=== PATIENT | male | born 1965 | race Caucasian/White ===

== ENCOUNTER 2016-02-28 16:01 | Emergency (ER) | payer MEDICARE ==
[~2016-02-28] VITALS: Ht 180.3 cm; Wt 113.6 kg
[~2016-02-28 16:01] MED LIST: CYCL-36 PO; OXYC5 PO; ZOFR4TAB3 SL
[2016-02-28 16:02] VITALS: BP 141/81; PULSE 97; RESP 17; TEMP 98.6; O2SAT 96
[2016-02-28] MEDS ORDERED: CYCL1TAB29 PO (17:19)
[2016-02-28] MEDS ORDERED: HYDR-3535 PO (17:19)
--- NOTE | 2016-02-28 17:24 | PD ---
HPI Chief Complaint: Abdominal Pain Time Seen by Provider: 17:20 Travel History International Travel<30 days: No Contact w/Intl Traveler<30days: No Traveled to known affect area: No History of Present Illness HPI 50-year-old male with history of chronic abdominal pain, gastritis, small bowel obstruction, PUD presents to the ED for evaluation of "months long" history of generalized abdominal pain, worsened over the last 3 or 4 days. No alleviating or exacerbating factors reported. Patient also endorses several episodes of nonbloody, non-plus vomiting and loose stools. States that last episode of vomiting was approximately 36 hours ago. He endorses 4 episodes of loose stool today. He denies fevers, chills, anorexia, BRBPR, melena, hematochezia. Endorses passing gas. Patient states that he was ordered to undergo gastroscopy and colonoscopy ~6 months ago but has not followed up. PFSH Past Medical History Anxiety: Yes Depression: Yes Cancer: No Cardiovascular Problems: No Diabetes: No Diminished Hearing: No Endocrine: No Gastrointestinal Disorders: Yes (ACID REFLUX, HX BLEEDING ULCERS) Hepatitis: No Hiatal Hernia: Yes Hypertension: No Immune Disorder: No Medical other: No Musculoskeletal: Yes (CHRONIC BACK PAIN; BULGING DISCS LUMBAR SPINE; ARTHRITIS) Neurologic: Yes (1 SEIZURE MANY YRS AGO) Psychiatric: Yes (ANXIETY & DEPRESSION ) Reproductive: No Respiratory: No Pneumonia: Yes Thyroid Disease: No Ulcer: Yes Influenza Vaccination: No Past Surgical History Abdominal Surgery: Yes (open exploratory due to spot on bowel; LAP CHOLECY) AICD: No Body Medical Devices: LUMB SPINE PINS, cage, PINS TO RIGHT HAND, Cardiac Surgery: No Cholecystectomy: Yes Ear Surgery: No Endocrine Surgery: No Eye Surgery: No Genitourinary Surgery: No Joint Replacement: No Neurologic Surgery: Yes (SPINAL fusions, pin, cage discectomy L4-L5) Oral Surgery: No Pacemaker: No Thoracic Surgery: No Other Surgery: Yes (BLEEDING ULCER CAUTERIZATION) Social History Alcohol Use: Yes (RARELY) Tobacco Use: Yes (1-2 PPD) Substance Use: No Allergies-Medications (Allergen,Severity, Reaction): Coded Allergies: Aspirin (Unverified Allergy, Severe, Bleeding, 02/28/16) bleeding ulcers Phenergan (Verified Allergy, Mild, RESTLESS LEGS, 02/28/16) Reported Meds & Prescriptions Reported Meds & Active Scripts Active Bentyl (Dicyclomine HCl) 10 Mg Cap 10 Mg PO QID 7 Days Reported Flexeril (Cyclobenzaprine HCl) 10 Mg Tab 10 Mg PO TID Lortab (Hydrocodone-Acetaminophen) 10-325 Mg Tab 1 Tab PO Q6H PRN Review of Systems Except as stated in HPI: all other systems reviewed are Neg Physical Exam Narrative GENERAL: Well-nourished, well-developed obese white male in no acute distress. SKIN: Warm and dry. Several scars on the abdomen, well-healed without signs of infection. HEAD: Normocephalic. EYES: No scleral icterus. No injection or drainage. NECK: Supple, trachea midline. No JVD or lymphadenopathy. CARDIOVASCULAR: Regular rate and rhythm without murmurs, gallops, or rubs. RESPIRATORY: Breath sounds equal bilaterally. No accessory muscle use. GASTROINTESTINAL: Abdomen protuberant, soft, nondistended. Mild tenderness in the epigastric region, mild tenderness in the suprapubic region. MUSCULOSKELETAL: No cyanosis, or edema. The patient is ambulatory and observed to walk and even gait. BACK: Nontender without obvious deformity. No CVA tenderness. Data Data Last Documented VS Vital Signs Date Time Temp Pulse Resp B/P Pulse Ox O2 Delivery O2 Flow Rate FiO2 02/28/16 17:53 97 Room Air 02/28/16 16:02 98.6 97 17 141/81 Orders Complete Blood Count With Diff (02/28/16 17:32) Comprehensive Metabolic Panel (02/28/16 17:32) Lipase (02/28/16 17:32) Lactic Acid (02/28/16 17:32) Prothrombin Time / Inr (Pt) (02/28/16 17:32) Act Partial Throm Time (Ptt) (02/28/16 17:32) Urinalysis - C+S If Indicated (02/28/16 17:32) Ct Abd/Pel W Iv Contrast(Rout) (02/28/16 17:32) Iv Access Insert/Monitor (02/28/16 17:32) Ecg Monitoring (02/28/16 17:32) Oximetry (02/28/16 17:32) Morphine Inj (Morphine Inj) (02/28/16 17:45) Ondansetron Inj (Zofran Inj) (1/22/17 17:45) Sodium Chlor 0.9% 1000 Ml Inj (Ns 1000 M (02/28/16 17:32) Sodium Chloride 0.9% Flush (Ns Flush) (02/28/16 17:45) Iohexol 350 Inj (Omnipaque 350 Inj) (02/28/16 18:30) Acetamin-Hydrocod 325-5 Mg ([place] 5-325 (02/28/16 20:00) Labs Laboratory Tests Test 02/28/16 02/28/16 17:58 19:02 White Blood Count 11.8 TH/MM3 Red Blood Count 5.56 MIL/MM3 Hemoglobin 15.5 GM/DL Hematocrit 45.4 % Mean Corpuscular Volume 81.7 FL Mean Corpuscular Hemoglobin 27.9 PG Mean Corpuscular Hemoglobin 34.1 % Concent Red Cell Distribution Width 12.9 % Platelet Count 333 TH/MM3 Mean Platelet Volume 8.1 FL Neutrophils (%) (Auto) 76.2 % Lymphocytes (%) (Auto) 16.7 % Monocytes (%) (Auto) 5.7 % Eosinophils (%) (Auto) 0.4 % Basophils (%) (Auto) 1.0 % Neutrophils # (Auto) 9.0 TH/MM3 Lymphocytes # (Auto) 2.0 TH/MM3 Monocytes # (Auto) 0.7 TH/MM3 Eosinophils # (Auto) 0.1 TH/MM3 Basophils # (Auto) 0.1 TH/MM3 CBC Comment DIFF FINAL Differential Comment Prothrombin Time 10.4 SEC Prothromb Time International 0.9 RATIO Ratio Activated Partial 28.7 SEC Thromboplast Time Sodium Level 139 MEQ/L Potassium Level 3.6 MEQ/L Chloride Level 104 MEQ/L Carbon Dioxide Level 28.7 MEQ/L Anion Gap 6 MEQ/L Blood Urea Nitrogen 10 MG/DL Creatinine 0.94 MG/DL Estimat Glomerular Filtration 86 ML/MIN Rate Random Glucose 96 MG/DL Lactic Acid Level 0.9 mmol/L Calcium Level 9.8 MG/DL Total Bilirubin 1.0 MG/DL Aspartate Amino Transf 13 U/L (AST/SGOT) Alanine Aminotransferase 27 U/L (ALT/SGPT) Alkaline Phosphatase 91 U/L Total Protein 7.3 GM/DL Albumin 4.0 GM/DL Lipase 163 U/L Urine Color LIGHT-YELLOW Urine Turbidity CLEAR Urine pH 8.0 Urine Specific [place] 1.010 Urine Protein NEG mg/dL Urine Glucose (UA) NEG mg/dL Urine Ketones NEG mg/dL Urine Occult Blood NEG Urine Nitrite NEG Urine Bilirubin NEG Urine Urobilinogen LESS THAN 2.0 MG/DL Urine Leukocyte Esterase NEG Urine WBC LESS THAN 1 /hpf Urine Squamous Epithelial <1 /hpf Cells Microscopic Urinalysis Comment CULT NOT INDICATED MDM Medical Decision Making Medical Screen Exam Complete: Yes Emergency Medical Condition: Yes Differential Diagnosis Gastroenteritis versus PUD versus small bowel obstruction versus chronic abdominal pain versus other Narrative Course 50-year-old male with history of chronic abdominal pain, gastritis, small bowel obstruction, PUD presents to the ED for evaluation of "months long" history of generalized abdominal pain, worsened over the last 3 or 4 days. No alleviating or exacerbating factors reported. Patient endorses several episodes of vomiting , last episode approximately 36 hours ago. Endorses 4 episodes of loose stool and passing gas today. Denies hematemesis, hematochezia, melena, fevers, chills , anorexia. Vitals reviewed. Physical exam reveals a nontoxic-appearing obese white male in no acute distress. The abdominal exam reveals mild epigastric and suprapubic tenderness but is otherwise unremarkable. No CVA tenderness. IV was established. Patient was administered Zofran, morphine, fluid bolus. CBC: WBC 11.8. Hemoglobin 15.5. INR 0.9. CMP unremarkable. Lactic acid 0.9. Lipase 163. UA: No culture indicated. Abdominal CT: No acute abnormality per radiology read. I discussed the patient, results of the workup and plan of care with Dr. Vilchis. Discussed the results of the workup with the patient, stressed the importance of follow-up with the risk investigator for gastroscopy as previously ordered. He was provided a course of Bentyl. We discussed the Aretha diet and again I stressed the importance of follow-up. He indicated understanding of the discharge instructions, he is amenable with the plan of care. He is stable and discharged home. Diagnosis Primary Impression: Abdominal pain Qualified Code: R10.84 - Generalized abdominal pain Referrals: [employer] Patient Instructions: Diet for Stomach Ulcers and Gastritis (ED), Gastritis (ED ), General Instructions Additional Instructions: Take Bentyl as prescribed. Eat a bland diet for the next 3 days and gradually reintroduce new foods. Follow-up with the risk investigator as previously ordered. Return to the ED for any urgent or emergent medical condition. Med/Other Pt SpecificInfo: Prescription(s) given Scripts Dicyclomine (Bentyl)10 Mg Cap10 Mg PO QID 7 Days Ref 0 Prov:Clement Vilchis MD 02/28/16 Disposition: 01 DISCHARGE HOME Condition: Stable Sepideh Cerna Feb 28, 2016 17:23
[2016-02-28] MEDS ORDERED: SODIUM CHLOR 0.9% 1000 ML INJ 1,000 ML IV SCH (17:32)
[2016-02-28] MEDS ORDERED: ONDANSETRON HCL 4 MG/2 ML VIAL IVP ONE (17:45)
[2016-02-28] MEDS ORDERED: MORPHINE SULFATE 4 MG/ML INJ IV PUSH ONE (17:45)
[2016-02-28] MEDS ORDERED: SODIUM CHLORIDE 0.9% FLUSH 5 ML FLUSH IVF PRN (17:45)
[2016-02-28 17:53] VITALS: O2SAT 97
[2016-02-28 18:08] LABS: BASOPHIL # 0.1 TH/MM3 (0-0.2); EOSINOPHIL # 0.1 TH/MM3 (0-0.4); EOSINOPHIL % 0.4 % (0.0-4.0); HEMATOCRIT 45.4 % (39.0-51.0); HEMO FLAGS DIFF FINAL; LYMPH % 16.7 % (9.0-44.0); MEAN CELL VOLUME 81.7 FL (80.0-100.0); MEAN CORPUSCULAR HEMOGLOBIN 27.9 PG (27.0-34.0); MEAN CORPUSCULAR HGB CONC 34.1 % (32.0-36.0); MONO % 5.7 % (0.0-8.0); NEUT % 76.2 % (16.0-70.0); PLATELET COUNT 333 TH/MM3 (150-450); RED BLOOD COUNT 5.56 MIL/MM3 (4.50-5.90); RED CELL DISTRIBUTION WIDTH 12.9 % (11.6-17.2); WHITE BLOOD COUNT 11.8 TH/MM3 (4.0-11.0)
[2016-02-28 18:22] LABS: ALT (GPT) 27 U/L (12-78); ANION GAP 6 MEQ/L (5-15); APTT (PATIENT) 28.7 SEC (24.3-30.1); AST (GOT) 13 U/L (15-37); BICARBONATE 28.7 MEQ/L (21.0-32.0); BLOOD UREA NITROGEN 10 MG/DL (7-18); CHLORIDE 104 MEQ/L (98-107); GLOMERULAR FILTRATION RATE 86 ML/MIN (>89); INTERNATIONAL NORMALIZED RATIO 0.9 RATIO; POTASSIUM 3.6 MEQ/L (3.5-5.1); PROTHROMBIN TIME - PATIENT 10.4 SEC (9.8-11.6); SODIUM (NA) 139 MEQ/L (136-145)
[2016-02-28 18:24] LABS: ALKALINE PHOSPHATASE 91 U/L (45-117)
[2016-02-28] MEDS ORDERED: IOHEXOL 350 MG/ML 10 ML VIAL (for RAD DIAG) IV ONE (18:30)
[2016-02-28 19:14] LABS: BLOOD, URINE NEG (NEG); GLUCOSE,URINE NEG (NEG); KETONE, URINE NEG (NEG); NITRITE,URINE NEG (NEG); SQUAMOUS EPITHELIAL CELL URINE <1 /hpf (0-5); URINE COLOR LIGHT-YELLOW (YELLW/STRAW)
--- NOTE | 2016-02-28 19:16 | RADRPT ---
EXAM DATE/TIME: 02/28/2016 18:25 [facility] COMPARISON: CT ABDOMEN & PELVIS W CONTRAST, May 21, 2015, 2:11. INDICATIONS : Middle lower abdominal pain X one week. IV CONTRAST: 71 cc Omnipaque 350 (iohexol) IV ORAL CONTRAST: No oral contrast ingested. RADIATION DOSE: 17.72 CTDIvol (mGy) MEDICAL HISTORY : Hernia, hiatal. SURGICAL HISTORY : Cholecystectomy. Colon resection. ENCOUNTER: Initial ACUITY: 1 week PAIN SCALE: 6/10 LOCATION: Abdomen TECHNIQUE: Volumetric scanning of the abdomen and pelvis was performed. Using automated exposure control and adjustment of the mA and/or kV according to patient size, radiation dose was kept as low as reasonably achievable to obtain optimal diagnostic quality images. FINDINGS: There are large calcified granulomas seen at the lung bases. There are calcified granulomas seen in the liver and spleen. The liver and spleen are otherwise unremarkable. The pancreas, adrenal glands and kidneys appear normal. The bowel appears normal. Significant diverticula are not seen. The ap pendix is normal. Normal sized lymph nodes are seen in the retroperitoneum. Scattered atherosclerot ic calcifications are seen throughout the arterial system. No aneurysm is present. The pelvic struc tures appear grossly intact. There is a calcification seen at the prostate. There is surgical hardw are seen at the lower lumbar spine. No focal bone lesions are seen. CONCLUSION: 1. No acute abnormality is seen. 2. Evidence of granulomatous disease. 3. Postsurgical change with hardware at the lumbar spine. Luca Archibald MD on February 28, 2016 at 19:00 Board Certified Radiologist. This report was verified electronically.
[2016-02-28 19:21] LABS: COMMENT (UR) CULT NOT INDICATED; CULTURE IF INDICATED CULT NOT INDICATED
[2016-02-28] MEDS ORDERED: DICY10 PO (19:53)
[2016-02-28] MEDS ORDERED: ACETAMINOPHEN/HYDROcodone 325 MG/5 MG TAB PO ONE (20:00)
== END 2016-02-28 20:19 | disposition home or self-care (01) ==
LOC: NEPA 16:01
DX: R10.84 Generalized abdominal pain (principal); G89.29 Other chronic pain
CPT/HCPCS: 74177; 80053; 81001; 83605; 83690; 85025; 85610; 85730; 96361; 96374; 96375; 99284; J2270; J2405; J7030; Q9967

== ENCOUNTER 2016-06-07 07:02 | Emergency (ER) | payer SELFPAY ==
[~2016-06-07] VITALS: Ht 180.3 cm; Wt 110.0 kg
[~2016-06-07 07:02] MED LIST changes: -CYCL-36 PO; +CYCL1TAB29 PO; +DICY10 PO; +HYDR-3535 PO; -OXYC5 PO; -ZOFR4TAB3 SL
[2016-06-07 07:08] VITALS: BP 132/67; PULSE 90; RESP 19; TEMP 98.9; O2SAT 100
[2016-06-07] MEDS ORDERED: SODIUM CHLOR 0.9% 1000 ML INJ 1,000 ML IV ONE (07:15)
[2016-06-07] MEDS ORDERED: PROCHLORPERAZINE INJ 10 MG/2 ML VIAL IV PUSH ONE (07:15)
[2016-06-07] MEDS ORDERED: diphenhydrAMINE HCL 50 MG/ML VIAL IV PUSH ONE (07:15)
[2016-06-07] MEDS ORDERED: OMEP20TA PO (07:36)
[2016-06-07 07:45] LABS: AUTOMATED NEUTROPHIL # 10.3 TH/MM3 (1.8-7.7); BASOPHIL # 0.1 TH/MM3 (0-0.2); BASOPHIL % 0.5 % (0.0-2.0); EOSINOPHIL % 0.4 % (0.0-4.0); HEMATOCRIT 38.1 % (39.0-51.0); HEMO FLAGS DIFF FINAL; LYMPH % 8.6 % (9.0-44.0); MEAN CORPUSCULAR HEMOGLOBIN 29.1 PG (27.0-34.0); MEAN CORPUSCULAR HGB CONC 35.5 % (32.0-36.0); MONO % 6.2 % (0.0-8.0); NEUT % 84.3 % (16.0-70.0); PLATELET COUNT 185 TH/MM3 (150-450); RED BLOOD COUNT 4.65 MIL/MM3 (4.50-5.90); RED CELL DISTRIBUTION WIDTH 13.3 % (11.6-17.2); WHITE BLOOD COUNT 12.2 TH/MM3 (4.0-11.0)
[2016-06-07 08:29] LABS: ALT (GPT) 21 U/L (12-78); ANION GAP 8 MEQ/L (5-15); AST (GOT) 21 U/L (15-37); BLOOD UREA NITROGEN 4 MG/DL (7-18); CHLORIDE 100 MEQ/L (98-107); GLOMERULAR FILTRATION RATE 94 ML/MIN (>89); POTASSIUM 3.8 MEQ/L (3.5-5.1); SODIUM (NA) 135 MEQ/L (136-145)
[2016-06-07 08:31] LABS: ALKALINE PHOSPHATASE 114 U/L (45-117); TOTAL BILIRUBIN ADULT 1.1 MG/DL (0.2-1.0)
[2016-06-07] MEDS ORDERED: ZOFR4TAB3 SL (08:34)
--- NOTE | 2016-06-07 08:34 | PD ---
HPI Chief Complaint: GI Complaint Time Seen by Provider: 07:07 Travel History International Travel<30 days: No Contact w/Intl Traveler<30days: No Traveled to known affect area: No History of Present Illness HPI So 50-year-old man who presents to the emergency department complaint of nausea vomiting started about 10:50 PM last night. States he's vomited 32 times throughout the night. He's vomiting dark yellow fluid. He states over the past week or so he's had a lot of diarrhea, 2 times in the past day, described as black watery diarrhea. He also noticed a rash to both his forearms. Since she's had the vomiting said trouble of migraine headaches as well. Patient had hernia repair, cholecystectomy, as well as in a exploratory surgery for some sort of "spot on [his] bowels". Patient denies any sick contacts. No recent travel. No unusual foods. She's been seen emergency prior for abdominal pain and vomiting multiple times in the past. He states he gets trouble with vomiting when he gets sick. His a history of GERD and reflux as well as back problems, he takes hydrocodone regularly. History Past Medical History Narrative Medical GERD, reflux, recurrent abdominal pain Back problems Social History Alcohol Use: Yes (RARELY) Tobacco Use: Yes (1-2 PPD) Allergies-Medications (Allergen,Severity, Reaction): Coded Allergies: Aspirin (Unverified Allergy, Severe, Bleeding, 02/28/16) bleeding ulcers Phenergan (Verified Allergy, Mild, RESTLESS LEGS, 02/28/16) Reported Meds & Prescriptions Reported Meds & Active Scripts Active Bentyl (Dicyclomine HCl) 10 Mg Cap 10 Mg PO QID 7 Days Reported Omeprazole 20 Mg Tab 20 Mg PO DAILY Flexeril (Cyclobenzaprine HCl) 10 Mg Tab 10 Mg PO TID Lortab (Hydrocodone-Acetaminophen) 10-325 Mg Tab 1 Tab PO Q6H PRN Review of Systems Except as stated in HPI: all other systems reviewed are Neg Physical Exam Narrative GENERAL: Well-appearing 50-year-old man, no acute distress. SKIN: Focused skin assessment warm/dry. HEAD: Atraumatic. Normocephalic. EYES: Pupils equal and round. No scleral icterus. No injection or drainage. ENT: No nasal bleeding or discharge. Mucous membranes pink and moist. NECK: Trachea midline. No JVD. CARDIOVASCULAR: Regular rate and rhythm. No murmur appreciated. RESPIRATORY: No accessory muscle use. Clear to auscultation. Breath sounds equal bilaterally. GASTROINTESTINAL: Abdomen is flat and soft. No significant tenderness. MUSCULOSKELETAL: No obvious deformities. No clubbing. No cyanosis. No edema. NEUROLOGICAL: Awake and alert. No obvious cranial nerve deficits. Motor grossly within normal limits. Normal speech. PSYCHIATRIC: Appropriate mood and affect; insight and judgment normal. Data Data Last Documented VS Vital Signs Date Time Temp Pulse Resp B/P Pulse Ox O2 Delivery O2 Flow Rate FiO2 06/07/16 07:08 98.9 90 19 132/67 100 Orders Complete Blood Count With Diff (06/07/16 07:14) Comprehensive Metabolic Panel (06/07/16 07:14) Lipase (06/07/16 07:14) Iv Access Insert/Monitor (06/07/16 07:14) Prochlorperazine Inj (Compazine Inj) (06/07/16 07:15) Diphenhydramine Inj (Benadryl Inj) (06/07/16 07:15) Sodium Chlor 0.9% 1000 Ml Inj (Ns 1000 M (06/07/16 07:15) Labs Laboratory Tests Test 06/07/16 07:20 White Blood Count 12.2 TH/MM3 Red Blood Count 4.65 MIL/MM3 Hemoglobin 13.5 GM/DL Hematocrit 38.1 % Mean Corpuscular Volume 82.0 FL Mean Corpuscular Hemoglobin 29.1 PG Mean Corpuscular Hemoglobin 35.5 % Concent Red Cell Distribution Width 13.3 % Platelet Count 185 TH/MM3 Mean Platelet Volume 8.7 FL Neutrophils (%) (Auto) 84.3 % Lymphocytes (%) (Auto) 8.6 % Monocytes (%) (Auto) 6.2 % Eosinophils (%) (Auto) 0.4 % Basophils (%) (Auto) 0.5 % Neutrophils # (Auto) 10.3 TH/MM3 Lymphocytes # (Auto) 1.0 TH/MM3 Monocytes # (Auto) 0.8 TH/MM3 Eosinophils # (Auto) 0.0 TH/MM3 Basophils # (Auto) 0.1 TH/MM3 CBC Comment DIFF FINAL Differential Comment Sodium Level 135 MEQ/L Potassium Level 3.8 MEQ/L Chloride Level 100 MEQ/L Carbon Dioxide Level 27.0 MEQ/L Anion Gap 8 MEQ/L Blood Urea Nitrogen 4 MG/DL Creatinine 0.87 MG/DL Estimat Glomerular Filtration 94 ML/MIN Rate Random Glucose 103 MG/DL Calcium Level 8.4 MG/DL Total Bilirubin 1.1 MG/DL Aspartate Amino Transf 21 U/L (AST/SGOT) Alanine Aminotransferase 21 U/L (ALT/SGPT) Alkaline Phosphatase 114 U/L Total Protein 6.8 GM/DL Albumin 3.9 GM/DL Lipase 115 U/L [facility] Medical Decision Making Medical Screen Exam Complete: Yes Emergency Medical Condition: Yes Interpretation(s) LABS: CBC remarkable for mild leukocytosis. CMP unremarkable. Lipase normal Differential Diagnosis Recurrent abdominal pain, vomiting, gastroenteritis, gastritis, pancreatitis, other Narrative Course Medical decision making 42 year-old man for recurrent abdominal pain and vomiting, etiology unclear. He is having some diarrhea as well. Multiple previous visits for the same. Reviewed multiple previous CT scans in our system, overall unremarkable 1 showing ileus. We'll check labs, supportive treatment with Zofran, outpatient follow-up. Diagnosis Primary Impression: Abdominal pain Additional Impression: Vomiting Additional Instructions: Zofran as needed for nausea or vomiting. Follow-up with her primary doctor in the next 2-4 days. Return to the emergency department for any new or worsening symptoms. Med/Other Pt SpecificInfo: Prescription(s) given Scripts Ondansetron Odt (Zofran Odt)4 Mg Tab4 Mg SL Q8HR PRN (Nausea/Vomiting) #15 TAB May substitute non-ODT form. Prov:Mauro Bruce MD 06/07/16 Disposition: 01 DISCHARGE HOME Condition: Stable Mauro Bruce MD June 07, 2016 08:34
== END 2016-06-07 09:28 | disposition home or self-care (01) ==
LOC: NEPE 07:02
DX: R10.9 Unspecified abdominal pain (principal); R11.10 Vomiting, unspecified; R19.7 Diarrhea, unspecified; R21 Rash and other nonspecific skin eruption; F17.210 Nicotine dependence, cigarettes, uncomplicated; K21.9 Gastro-esophageal reflux disease without esophagitis
CPT/HCPCS: 80053; 83690; 85025; 96361; 96374; 96375; 99284; J0780; J1200; J7030

== ENCOUNTER 2016-06-26 10:30 | Emergency (ER) | payer SELFPAY ==
[~2016-06-26] VITALS: Ht 180.3 cm; Wt 109.0 kg
[~2016-06-26 10:30] MED LIST changes: +OMEP20TA PO; +ZOFR4TAB3 SL
[2016-06-26 10:31] VITALS: BP 137/77; PULSE 76; RESP 24; TEMP 98.6; O2SAT 99
[2016-06-26 11:00] VITALS: BP 117/80; PULSE 69; RESP 16; TEMP 99.3; O2SAT 97
[2016-06-26] MEDS ORDERED: oxyCODONE/ACETAMINOPHEN 10 MG/325 MG TAB PO ONE (11:15)
--- NOTE | 2016-06-26 11:40 | PD ---
HPI Chief Complaint: Skin Problem Time Seen by Provider: 11:32 Travel History International Travel<30 days: No Contact w/Intl Traveler<30days: No Traveled to known affect area: No History of Present Illness HPI 50-year-old male that presents to the ED for evaluation of multiple complaints. Per patient his main complaint is a rash that he's had to his bilateral arms as well as his right leg. Per patient this is ongoing for years. Per patient he had surgery in 2013 for exploratory surgery and they found some lesion and ever since she's had this rash. Per patient he only comes and goes. Per patient is not pruritic but somewhat painful. Per patient the rash on the right leg is more painful. He denies any injuries. He denies working outside. No fevers chills or sweats. He also tells me that he feels that he has diarrhea which appears to be chronic as well as trouble urinating where he feels that he has to go but nothing comes out minimal as well as having to go pee multiple times during the night. He tells me that he has not seen anybody for this as he has no insurance to see outpatient treatment. Per patient he has insurance which allows him to go to the hospital. He states that his pain in his leg is 8 out of 10. He denies any injuries. No fevers chills or sweats. PFSH Past Medical History Anxiety: Yes Depression: Yes Cancer: No Cardiovascular Problems: No Diabetes: No Diminished Hearing: No Endocrine: No Gastrointestinal Disorders: Yes (ACID REFLUX, HX BLEEDING ULCERS) GERD: Yes Hepatitis: No Hiatal Hernia: Yes Hypertension: No Immune Disorder: No Musculoskeletal: Yes (CHRONIC BACK PAIN; BULGING DISCS LUMBAR SPINE; ARTHRITIS) Neurologic: Yes (1 SEIZURE MANY YRS AGO) Psychiatric: Yes (ANXIETY & DEPRESSION ) Reproductive: No Respiratory: No Pneumonia: Yes Thyroid Disease: No Ulcer: Yes Tetanus Vaccination: Unknown Past Surgical History Abdominal Surgery: Yes (open exploratory due to spot on bowel; LAP CHOLECY, HERNIA ) AICD: No Body Medical Devices: LUMB SPINE PINS, cage, PINS TO RIGHT HAND, Cardiac Surgery: No Cholecystectomy: Yes Ear Surgery: No Endocrine Surgery: No Eye Surgery: No Genitourinary Surgery: No Joint Replacement: No Neurologic Surgery: Yes (SPINAL fusions, pin, cage discectomy L4-L5) Oral Surgery: No Pacemaker: No Thoracic Surgery: No Tonsillectomy: Yes Other Surgery: Yes (BLEEDING ULCER CAUTERIZATION) Social History Alcohol Use: Yes (ocassionally) Tobacco Use: Yes (2-1 02/07 PPD) Substance Use: No Allergies-Medications (Allergen,Severity, Reaction): Coded Allergies: Aspirin (Unverified Allergy, Severe, Bleeding, 06/26/16) bleeding ulcers Benadryl (Verified Allergy, Severe, 06/26/16) "ANXIETY ATTACK" "RESTLESS LEG" Phenergan (Verified Allergy, Mild, RESTLESS LEGS, 06/26/16) Reported Meds & Prescriptions Reported Meds & Active Scripts Active Reported Flexeril (Cyclobenzaprine HCl) 10 Mg Tab 10 Mg PO TID Lortab (Hydrocodone-Acetaminophen) 10-325 Mg Tab 1 Tab PO Q6H PRN Review of Systems Except as stated in HPI: all other systems reviewed are Neg Physical Exam Narrative GENERAL: SKIN: Warm and dry. Patient has dirt on all of his nails including the hands and toes. Patient has what appears to be an abrasion that appears to be infected on the lateral aspect of the right foot. Tender to palpation in this area. Full range of motion of the leg. No obvious erythema noted. Yellow crusting noted on the wound itself. Patient does have raised pinkish rash on the dorsal forearms with some yellow crusting. Nonpainful. Nonpleuritic. Patient does have rash not on the left forearm with some signs of itching. HEAD: Atraumatic. Normocephalic. EYES: Pupils equal and round. No scleral icterus. No injection or drainage. ENT: No nasal bleeding or discharge. Mucous membranes pink and moist. Tongue is midline. No uvula deviation. NECK: Trachea midline. No JVD. CARDIOVASCULAR: Regular rate and rhythm. No murmurs, S3, S4. RESPIRATORY: No accessory muscle use. Clear to auscultation. Breath sounds equal bilaterally. GASTROINTESTINAL: Abdomen soft, non-tender, nondistended. Hepatic and splenic margins not palpable. MUSCULOSKELETAL: Extremities without clubbing, cyanosis, or edema. No obvious deformities. Full range of motion of the upper and lower extremities bilaterally. 2+ pulses bilaterally. NEUROLOGICAL: Awake and alert. No obvious cranial nerve deficits. Motor grossly within normal limits. Five out of 5 muscle strength in the arms and legs. Normal speech. PSYCHIATRIC: Appropriate mood and affect; insight and judgment normal. Data Data Last Documented VS Vital Signs Date Time Temp Pulse Resp B/P Pulse Ox O2 Delivery O2 Flow Rate FiO2 06/26/16 11:00 99.3 69 16 117/80 97 06/26/16 10:31 Room Air Orders Urinalysis - C+S If Indicated (06/26/16 11:15) Oxycodone-Acetamin 10-325 Mg (Percocet 1 (06/26/16 11:15) Wound Culture And Gram Stain (06/26/16 11:15) Labs Laboratory Tests Test 06/26/16 11:25 Urine Color YELLOW Urine Turbidity CLEAR Urine pH 5.5 Urine Specific [place] 1.008 Urine Protein NEG mg/dL Urine Glucose (UA) NEG mg/dL Urine Ketones NEG mg/dL Urine Occult Blood NEG Urine Nitrite NEG Urine Bilirubin NEG Urine Urobilinogen LESS THAN 2.0 MG/DL Urine Leukocyte Esterase NEG Urine RBC LESS THAN 1 /hpf Urine WBC LESS THAN 1 /hpf Urine Mucus FEW /lpf Microscopic Urinalysis Comment CULT NOT INDICATED MDM Medical Decision Making Medical Screen Exam Complete: Yes Emergency Medical Condition: Yes Medical Record Reviewed: Yes Interpretation(s) UA negative Differential Diagnosis Impetigo versus colitis versus ulcer versus infected wound versus chronic rash versus dermatitis versus UTI versus prostatitis versus prostate issues Narrative Course 50-year-old male to presents to the ED for evaluation of rash as well as possible urinary issues. Patient was properly examined and was found to have signs and symptoms appear to be consistent with impetigo infected wound on the right leg. Rash on the arms appears to be dermatitis. Unclear etiology of it however. Some yellow crusting noted and could be related to infection. I did a culture of the leg wound. Regards to his urinary issues this appears to be likely prostate issue. Patient states that he has no follow-up outpatient because his insurance won't allow him. I do recommend strongly that he works to get insurance so he can follow-up outpatient for the urinary issue. Urine will be done to make sure patient does not have a urinary tract infection although this is less likely. Regards to his diarrhea which appears to be chronic patient has been worked up here multiple times for this. Last time actually 2 weeks ago. I do not see any need for evaluation of this again as patient has had multiple workups that have all been negative. No sign of abdominal discomfort. Exam is benign. I recommend follow-up outpatient for this. Patient will be given information for free clinic outpatient. Urine showed. Patient was given a prescription for Bactrim, Bactroban, Keflex, percocet, diclofenac sodium. Case discussed with my attending who agrees with plan. Told to follow up closely with clinic. See ED for worsening symptoms. Diagnosis Primary Impression: Wound infection Additional Impressions: Dermatitis BPH (benign prostatic hyperplasia) Qualified Code: N40.1 - Benign prostatic hyperplasia with lower urinary tract symptoms, unspecified morphology Patient Instructions: General Instructions Additional Instructions: Follow-up with outpatient clinic or urologist for your urinary symptoms as they could be related to prostate enlargement which is common with older males. See ED if worsening symptoms. Take your medications as prescribed. Recheck in 48 hours for the leg wound if worsening. Med/Other Pt SpecificInfo: Prescription(s) given Scripts Cephalexin (Keflex)500 Mg Ndz102 Mg PO Q6H 10 Days Prov:Simon Sebastian MD 06/26/16 Mupirocin Topical (Bactroban Topical)2% Oint1 Appl TOPICAL BID 14 Days Prov:Simon Sebastian MD 06/26/16 Sulfamethoxazole-Trimethoprim (Bactrim DS)800-160 Mg Tab1 Tab PO BID 14 Days Prov:Simon Sebastian MD 06/26/[address] 75 Mg Tabdr75 Mg PO BID PRN (PAIN SCALE 1 TO 10) #20 TAB Prov:Simon Sebastian MD 06/26/16 Oxycodone-Acetaminophen (Percocet)5-325 mg Tab1 Tab PO Q6H PRN (PAIN) #14 TAB Ref 0 Prov:Simon Sebastian MD 06/26/16 Disposition: 01 DISCHARGE HOME Condition: Stable Ho Zavala June 26, 2016 11:40
[2016-06-26 11:48] LABS: BLOOD, URINE NEG (NEG); COMMENT (UR) CULT NOT INDICATED; CULTURE IF INDICATED CULT NOT INDICATED; GLUCOSE,URINE NEG (NEG); KETONE, URINE NEG (NEG); MUCUS URINE FEW /lpf (OCC); NITRITE,URINE NEG (NEG); PH, URINE 5.5 (5.0-8.5); URINE COLOR YELLOW (YELLW/STRAW)
[2016-06-26] MEDS ORDERED: BACT800T5 PO (11:56)
[2016-06-26] MEDS ORDERED: DICL75TA PO (11:56)
[2016-06-26] MEDS ORDERED: BACT2OIN TOPICAL (11:56)
[2016-06-26] MEDS ORDERED: CEPH-460 PO (11:56)
[2016-06-26] MEDS ORDERED: PERC5TAB12 PO (11:56)
== END 2016-06-26 12:09 | disposition home or self-care (01) ==
LOC: NEPD 10:30
DX: L08.9 Local infection of the skin and subcutaneous tissue, unspecified (principal); B95.61 Methicillin susceptible Staphylococcus aureus infection as the cause of diseases classified elsewhere; L30.9 Dermatitis, unspecified; N40.1 Benign prostatic hyperplasia with lower urinary tract symptoms; R30.0 Dysuria; R35.0 Frequency of micturition; R19.7 Diarrhea, unspecified; F17.200 Nicotine dependence, unspecified, uncomplicated; Z86.59 Personal history of other mental and behavioral disorders; Z87.19 Personal history of other diseases of the digestive system; Z87.39 Personal history of other diseases of the musculoskeletal system and connective tissue
CPT/HCPCS: 81001; 86403; 87070; 87186; 99284

== ENCOUNTER 2017-06-08 19:53 | Emergency (ER) | payer SELFPAY ==
[~2017-06-08] VITALS: Ht 180.3 cm; Wt 78.0 kg
[~2017-06-08 19:53] MED LIST changes: +BACT2OIN TOPICAL; +BACT800T5 PO; +CEPH-460 PO; +CYCL10TA PO; -CYCL1TAB29 PO; +DICL75TA PO; -DICY10 PO; -OMEP20TA PO; +PERC5TAB12 PO; -ZOFR4TAB3 SL
[2017-06-08 19:56] VITALS: BP 130/80; PULSE 78; RESP 15; TEMP 98.6; O2SAT 96
[2017-06-08] MEDS ORDERED: PERC10TA27 PO (20:03)
[2017-06-08] MEDS ORDERED: ONDANSETRON HCL 4 MG/2 ML VIAL IV PUSH ONE ×2 (20:15→21:00)
[2017-06-08] MEDS ORDERED: NALOXONE HCL 2 MG/2 ML VIAL ONE (20:55)
[2017-06-08 20:58] LABS: AUTOMATED NEUTROPHIL # 7.2 TH/MM3 (1.8-7.7); BASOPHIL # 0.1 TH/MM3 (0-0.2); BASOPHIL % 1.1 % (0.0-2.0); EOSINOPHIL # 0.1 TH/MM3 (0-0.4); EOSINOPHIL % 1.2 % (0.0-4.0); HEMATOCRIT 45.1 % (39.0-51.0); HEMOGLOBIN 15.4 GM/DL (13.0-17.0); LYMPH % 23.4 % (9.0-44.0); LYMPHOCYTE # 2.5 TH/MM3 (1.0-4.8); MEAN CELL VOLUME 82.4 FL (80.0-100.0); MEAN CORPUSCULAR HEMOGLOBIN 28.1 PG (27.0-34.0); MEAN CORPUSCULAR HGB CONC 34.2 % (32.0-36.0); MEAN PLATELET VOLUME 8.4 FL (7.0-11.0); MONO % 7.8 % (0.0-8.0); MONOCYTE # 0.8 TH/MM3 (0-0.9); NEUT % 66.5 % (16.0-70.0); PLATELET COUNT 252 TH/MM3 (150-450); RED BLOOD COUNT 5.48 MIL/MM3 (4.50-5.90); RED CELL DISTRIBUTION WIDTH 12.8 % (11.6-17.2); WHITE BLOOD COUNT 10.8 TH/MM3 (4.0-11.0)
[2017-06-08] MEDS ORDERED: NALOXONE HCL 2 MG/2 ML VIAL IV PUSH ONE (21:00)
--- NOTE | 2017-06-08 21:03 | RADRPT ---
EXAM DATE/TIME: 06/08/2017 20:29 [place] COMPARISON: CT ABDOMEN & PELVIS W CONTRAST, February 28, 2016, 18:25. INDICATIONS : Possible trauma and aspiration. MEDICAL HISTORY : None. SURGICAL HISTORY : None. ENCOUNTER: Initial ACUITY: 1 day PAIN SCORE: Non-responsive. LOCATION: Bilateral chest FINDINGS: There are stable large calcified granulomas in the lungs. No new consolidation or effusion. Heart siz e normal. CONCLUSION: 1. No acute findings. Stable large calcified granulomas in the lung. Miguel Ángel Amos MD on June 08, 2017 at 21:00 Board Certified Radiologist. This report was verified electronically.
[2017-06-08 21:24] LABS: ALBUMIN 4.2 GM/DL (3.4-5.0); AST (GOT) 25 U/L (15-37); BICARBONATE 27.1 MEQ/L (21.0-32.0); BLOOD UREA NITROGEN 13 MG/DL (7-18); CALCIUM 8.8 MG/DL (8.5-10.1); CHLORIDE 99 MEQ/L (98-107); CREATININE 1.54 MG/DL (0.60-1.30); GLOMERULAR FILTRATION RATE 48 ML/MIN (>89); GLUCOSE,RANDOM 117 MG/DL (74-106); SODIUM (NA) 139 MEQ/L (136-145)
--- NOTE | 2017-06-08 21:28 | PD ---
HPI Chief Complaint: OD/ Ingestion Time Seen by Provider: 19:57 Travel History International Travel<30 days: No Contact w/Intl Traveler<30days: No Traveled to known affect area: No History of Present Illness HPI 51-year-old male brought to the emergency department by EMS after being found down in front of his home. Apparently a neighbor was doing compressions when EMS arrived. He is a suspected overdose, and did respond to Narcan prehospital. Patient has no complaints of pain. He states that he is on Percocet for chronic back pain but did not take more than he is supposed to [facility] Past Medical History Anxiety: Yes Depression: Yes Cancer: No Cardiovascular Problems: No Diabetes: No Diminished Hearing: No Endocrine: No Gastrointestinal Disorders: Yes (ACID REFLUX, HX BLEEDING ULCERS) GERD: Yes Hepatitis: No Hiatal Hernia: Yes Hypertension: No Immune Disorder: No Musculoskeletal: Yes (CHRONIC BACK PAIN; BULGING DISCS LUMBAR SPINE; ARTHRITIS) Neurologic: Yes (1 SEIZURE MANY YRS AGO) Psychiatric: Yes (ANXIETY & DEPRESSION ) Reproductive: No Respiratory: No Pneumonia: Yes Thyroid Disease: No Ulcer: Yes Past Surgical History Abdominal Surgery: Yes (open exploratory due to spot on bowel; LAP CHOLECY, HERNIA ) AICD: No Body Medical Devices: LUMB SPINE PINS, cage, PINS TO RIGHT HAND, Cardiac Surgery: No Cholecystectomy: Yes Ear Surgery: No Endocrine Surgery: No Eye Surgery: No Genitourinary Surgery: No Joint Replacement: No Neurologic Surgery: Yes (SPINAL fusions, pin, cage discectomy L4-L5) Oral Surgery: No Pacemaker: No Thoracic Surgery: No Tonsillectomy: Yes Other Surgery: Yes (BLEEDING ULCER CAUTERIZATION) Social History Alcohol Use: Yes Tobacco Use: Yes (02/07-1 02/07 PPD) Substance Use: No Allergies-Medications (Allergen,Severity, Reaction): Coded Allergies: aspirin (Unverified Allergy, Severe, Bleeding, 06/08/17) bleeding ulcers diphenhydramine (Unverified Allergy, Severe, 06/08/17) "ANXIETY ATTACK" "RESTLESS LEG" promethazine (Unverified Allergy, Mild, RESTLESS LEGS, 06/08/17) Reported Meds & Prescriptions Reported Meds & Active Scripts Active Diclofenac Sodium DR (Diclofenac Sodium) 75 Mg Tabdr 75 Mg PO BID PRN Reported Percocet (Oxycodone-Acetaminophen) 10-325 mg Tab 1 Tab PO Q6H PRN Flexeril (Cyclobenzaprine HCl) 10 Mg Tab 10 Mg PO TID Review of Systems Except as stated in HPI: all other systems reviewed are Neg Musculoskeletal: Positive: Pain (Chronic back pain) Physical Exam Narrative GENERAL: 51-year-old male in no distress. Answers questions appropriately. SKIN: Focused skin assessment warm/dry. HEAD: Atraumatic. Normocephalic. EYES: Pupils equal and round. No scleral icterus. No injection or drainage. ENT: Nasal bleeding from left nares ((nasal trumpet placed pre-hospital). Mucous membranes pink and moist. NECK: Trachea midline. No JVD. CARDIOVASCULAR: Regular rate and rhythm. No murmur appreciated. RESPIRATORY: No accessory muscle use. Clear to auscultation. Breath sounds equal bilaterally. GASTROINTESTINAL: Abdomen soft, non-tender, nondistended. Hepatic and splenic margins not palpable. MUSCULOSKELETAL: No obvious deformities. No clubbing. No cyanosis. No edema. NEUROLOGICAL: Awake and alert. No obvious cranial nerve deficits. Motor grossly within normal limits. Normal speech. Data Data Last Documented VS Vital Signs Date Time Temp Pulse Resp B/P (MAP) Pulse Ox O2 Delivery O2 Flow Rate FiO2 06/08/17 22:05 72 18 113/77 (89) 97 Room Air 06/08/17 19:56 98.6 Orders Orders Ondansetron Inj (Zofran Inj) (06/08/17 20:15) Chest, Pa & Lat (06/08/17 ) Drug Screen, Random Urine (06/08/17 20:07) Complete Blood Count With Diff (06/08/17 20:33) Comprehensive Metabolic Panel (06/08/17 20:33) Naloxone Inj (Narcan Inj) (06/08/17 21:00) Naloxone Inj (Narcan Inj) (06/08/17 20:55) Ondansetron Inj (Zofran Inj) (06/08/17 21:00) Sodium Chlor 0.9% 1000 Ml Inj (Ns 1000 M (06/08/17 21:30) Sodium Chlor 0.9% 1000 Ml Inj (Ns 1000 M (06/08/17 21:30) Creatine Kinase (Cpk) (06/08/17 21:29) CKMB (06/08/17 20:53) CKMB% (06/08/17 20:53) Labs Laboratory Tests Test 06/08/17 20:53 White Blood Count 10.8 TH/MM3 Red Blood Count 5.48 MIL/MM3 Hemoglobin 15.4 GM/DL Hematocrit 45.1 % Mean Corpuscular Volume 82.4 FL Mean Corpuscular Hemoglobin 28.1 PG Mean Corpuscular Hemoglobin Concent 34.2 % Red Cell Distribution Width 12.8 % Platelet Count 252 TH/MM3 Mean Platelet Volume 8.4 FL Neutrophils (%) (Auto) 66.5 % Lymphocytes (%) (Auto) 23.4 % Monocytes (%) (Auto) 7.8 % Eosinophils (%) (Auto) 1.2 % Basophils (%) (Auto) 1.1 % Neutrophils # (Auto) 7.2 TH/MM3 Lymphocytes # (Auto) 2.5 TH/MM3 Monocytes # (Auto) 0.8 TH/MM3 Eosinophils # (Auto) 0.1 TH/MM3 Basophils # (Auto) 0.1 TH/MM3 CBC Comment DIFF FINAL Differential Comment Blood Urea Nitrogen 13 MG/DL Creatinine 1.54 MG/DL Random Glucose 117 MG/DL Total Protein 7.6 GM/DL Albumin 4.2 GM/DL Calcium Level 8.8 MG/DL Alkaline Phosphatase 113 U/L Aspartate Amino Transf (AST/SGOT) 25 U/L Alanine Aminotransferase (ALT/SGPT) 21 U/L Total Bilirubin 1.2 MG/DL Sodium Level 139 MEQ/L Potassium Level 3.8 MEQ/L Chloride Level 99 MEQ/L Carbon Dioxide Level 27.1 MEQ/L Anion Gap 13 MEQ/L Estimat Glomerular Filtration Rate 48 ML/MIN Total Creatine Kinase 378 U/L Creatine Kinase MB 4.0 NG/ML Creatine Kinase MB % 1.1 % [facility] Medical Decision Making Medical Screen Exam Complete: Yes Emergency Medical Condition: Yes Differential Diagnosis Opiate overdose Narrative Course Patient was seen and evaluated in the emergency department. Upon arrival his O2 saturation was 100% and he was speaking clearly. During his hospital course he desaturated into the high 70s and was given an additional dose of Narcan 2 mg. He awoke and his O2 saturation improved to 100% on room air once again. He was observed for several hours prior to discharge. His Creatinine was elevated so he was given two liters of NS prior to discharge. Patient is advised to follow up with his PCP in 24-48 hours Diagnosis Primary Impression: Opiate overdose Qualified Codes: T40.601A - Poisoning by unspecified narcotics, accidental ( unintentional), initial encounter Disposition: 01 DISCHARGE HOME Condition: Good Geeta Alberts DO June 08, 2017 21:28
[2017-06-08 21:29] LABS: ALKALINE PHOSPHATASE 113 U/L (45-117); ALT (GPT) 21 U/L (12-78); TOTAL BILIRUBIN ADULT 1.2 MG/DL (0.2-1.0); TOTAL PROTEIN 7.6 GM/DL (6.4-8.2)
[2017-06-08] MEDS ORDERED: SODIUM CHLOR 0.9% 1000 ML INJ 1,000 ML IV ONE ×2 (21:30)
[2017-06-08 22:05] VITALS: BP 113/77; PULSE 72; RESP 18; O2SAT 97
== END 2017-06-09 00:26 | disposition home or self-care (01) ==
LOC: NEPC 19:53
DX: T40.601A Poisoning by unspecified narcotics, accidental (unintentional), initial encounter (principal); F17.200 Nicotine dependence, unspecified, uncomplicated
CPT/HCPCS: 71046; 80053; 82550; 82552; 85025; 96374; 96375; 99284; J2310; J2405; J7030